=== PATIENT | female | born 1980 | race Hispanic/Latino ===

== ENCOUNTER 2018-04-04 06:17 | Day surgery (SDC) | payer MEDICAID ==
[2018-04-04] MEDS ORDERED: NACL 0.9% 1000 ML 1,000 ML IV SCH (13:00)
--- NOTE | 2018-04-04 13:16 | Anesthesia Day of Surgery ---
Anesthesia Day of Surgery - Day of Surgery Patient Examined: Yes Patient H&P Reviewed: Yes Patient is NPO: Yes
--- NOTE | 2018-04-04 13:16 | Anesthesia Consultation ---
Anesthesia Consult and Med Hx Date of service: 04/04/18 - Airway Anesthetic Teeth Evaluation: Good ROM Head & Neck: Adequate Mental/Hyoid Distance: Adequate Mallampati Class: Class III Intubation Access Assessment: Possibly Difficult - Pulmonary Exam CTA: Yes - Cardiac Exam Cardiac Exam: RRR - Pre-Operative Health Status ASA Pre-Surgery Classification: ASA3 Proposed Anesthetic Plan: General - Pulmonary Hx Smoking: No Hx Sleep Apnea: Yes (MILD/NO CPAP) - Cardiovascular System Hx Hypertension: Yes (not on meds) - Central Nervous System Hx Psychiatric Problems: Yes (depression) - Endocrine Hx Non-Insulin Dependent Diabetes: Yes - Other Systems Hx Alcohol Use: Yes (RARELY) Hx Substance Use: No Hx Cancer: No Hx Obesity: Yes
[2018-04-04] MEDS ORDERED: HURRICAINE ONE 20% TOPICAL SPRAY MM ×2 (13:49→17:19)
[2018-04-04] MEDS ORDERED: DIPRIVAN 10 MG/ML IV ONE (13:55)
[2018-04-04] MEDS ORDERED: WATER FOR IRRIG STERILE IR ONE (13:56)
[2018-04-04 14:42] VITALS: BP 106/53
--- NOTE | 2018-04-04 14:42 | Post Anesthesia Evaluation ---
- Post Anesthesia Evaluation Patient Participated: Yes Airway Patent: Yes Stable Respiratory Function: Yes Nausea/Vomiting: No Temp > 96.8F: Yes Pain Manageable: Yes Adequeate Hydration: Yes Anesthesia Complications: No
[2018-04-04] MEDS ORDERED: HURRICAINE ONE 20% TOPICAL SPRAY MM NR (19:00)
== END 2018-04-04 06:18 | disposition home or self-care (01) ==
LOC: GIO 06:17
PROVIDERS: ATTEND Specialist
DX: K29.70 Gastritis, unspecified, without bleeding (principal); K44.9 Diaphragmatic hernia without obstruction or gangrene; I10 Essential (primary) hypertension; G47.33 Obstructive sleep apnea (adult) (pediatric); E66.01 Morbid (severe) obesity due to excess calories; E11.9 Type 2 diabetes mellitus without complications; F32.9 Major depressive disorder, single episode, unspecified; Z90.49 Acquired absence of other specified parts of digestive tract; Z90.710 Acquired absence of both cervix and uterus; Z98.890 Other specified postprocedural states; Z68.41 Body mass index [BMI] 40.0-44.9, adult; Z88.6 Allergy status to analgesic agent
CPT/HCPCS: 43235; 82962; J2704; J7030

== ENCOUNTER 2018-04-11 07:11 | Inpatient (IN) | payer MEDICAID ==
[2018-04-11] MEDS ORDERED: TRANSDERM-SCOP TD SCH (08:00)
[2018-04-11] MEDS ORDERED: REGLAN IV PRN (08:00)
[2018-04-11] MEDS ORDERED: FLAGYL 500 MG/100 ML 500 MG/100 ML BAG IV NR ×2 (08:00→11:00)
[2018-04-11] MEDS: LACTATED RINGERS 1,000 ML IV SCH ×3 (08:16→23:30)
[2018-04-11 08:42] LABS: Basophils % (Auto) 0.5 % (0.0-1.8); Eosinophils # (Auto) 0.2 K/mm3 (0.0-0.4); Eosinophils % (Auto) 3.1 % (0.0-4.3); Hematocrit 40.1 % (30.3-42.9); Lymphocytes % (Auto) 26.7 % (13.4-35.0); Mean Corpuscular HGB Conc 35 % (30-34); Mean Corpuscular Hemoglobin 31 pg (28-32); Mean Corpuscular Volume 88 fl (79-97); Monocytes # (Auto) 0.5 K/mm3 (0.0-0.8); Monocytes % (Auto) 7.1 % (0.0-7.3); Platelet Count 317 K/mm3 (140-440); Red Blood Count 4.55 M/mm3 (3.65-5.03); Red Cell Distribution Width 13.9 % (13.2-15.2)
[2018-04-11 08:54] LABS: Alanine Aminotransferase 65 units/L (7-56); Albumin 4.2 g/dL (3.9-5); BUN/Creatinine Ratio 18; Blood Urea Nitrogen 11 mg/dL (7-17); Calcium 9.6 mg/dL (8.4-10.2); Hemolysis Index 11
[2018-04-11] MEDS ORDERED: LOVENOX SUB-Q ONE (09:00)
[2018-04-11] MEDS ORDERED: ANCEF/STERILE WATER 2 GM/20 ML 2 GM/20 ML SYRINGE IV SCH (09:00)
[2018-04-11] MEDS ORDERED: APRESOLINE IV PRN (10:38)
[2018-04-11] MEDS ORDERED: ANCEF/STERILE WATER 2 GM/20 ML 2 GM/20 ML SYRINGE IV NR (11:00)
[2018-04-11] MEDS ORDERED: LOVENOX SUB-Q NR (11:00)
--- NOTE | 2018-04-11 11:53 | Anesthesia Consultation ---
Anesthesia Consult and Med Hx Date of service: 04/11/18 - Airway Anesthetic Teeth Evaluation: Good ROM Head & Neck: Adequate Mental/Hyoid Distance: Adequate Mallampati Class: Class II Intubation Access Assessment: Probably Good - Pulmonary Exam CTA: Yes - Cardiac Exam Cardiac Exam: RRR - Pre-Operative Health Status ASA Pre-Surgery Classification: ASA3 Proposed Anesthetic Plan: General - Pulmonary Hx Smoking: No Hx Sleep Apnea: Yes - Cardiovascular System Hx Hypertension: Yes (not on meds) - Central Nervous System Hx Psychiatric Problems: No - Endocrine Hx Non-Insulin Dependent Diabetes: Yes - Other Systems Hx Alcohol Use: Yes (OCCA) Hx Substance Use: No Hx Cancer: No Hx Obesity: Yes
--- NOTE | 2018-04-11 11:53 | Anesthesia Day of Surgery ---
Anesthesia Day of Surgery - Day of Surgery Patient Examined: Yes Patient H&P Reviewed: Yes Patient is NPO: Yes
[2018-04-11] MEDS ORDERED: DIPRIVAN 10 MG/ML IV ONE (11:55)
[2018-04-11] MEDS ORDERED: ZEMURON IV ONE (11:55)
[2018-04-11] MEDS ORDERED: SUBLIMAZE ONE (11:55)
[2018-04-11] MEDS ORDERED: XYLOCAINE MPF 2% ONE (11:58)
[2018-04-11] MEDS ORDERED: ZOFRAN ONE (11:59)
[2018-04-11] MEDS ORDERED: TORADOL ONE ×2 (11:59→15:17)
[2018-04-11] MEDS ORDERED: XYLOCAINE 1% 20 mL INFILTRATI ONE (12:02)
[2018-04-11] MEDS ORDERED: NACL 0.9% IR ONE ×2 (12:02)
[2018-04-11] MEDS ORDERED: MARCAINE 0.5% INFILTRATI ONE (12:02)
[2018-04-11] MEDS ORDERED: VERSED ONE (12:05)
[2018-04-11] MEDS ORDERED: XYLOCAINE 1% 20 mL ONE (12:26)
[2018-04-11] MEDS ORDERED: MARCAINE 0.5% 30 ML INFILTRATI ONE (12:26)
[2018-04-11] MEDS ORDERED: DILAUDID ONE (14:42)
[2018-04-11] MEDS ORDERED: NACL 0.9% 1000 ML 1,000 ML ONE (15:12)
--- NOTE | 2018-04-11 15:29 | Operative Report ---
Operative Report Operative Report: DATE OF PROCEDURE 04/11/18 PREOPERATIVE DIAGNOSES: Morbid obesity POSTOPERATIVE DIAGNOSES: 1.same as pre-op SURGEON: Dr. Mills [employer]MEN: Dr.Speights Eagle DO PROCEDURE: 1. laparoscopic sleeve gastrectomy 2. laparoscopic hiatal hernia repair ANESTHESIA: General. ESTIMATED BLOOD LOSS: 75 mL. COMPLICATIONS: None. SPECIMEN: Partial gastrectomy. FINDINGS: 1. hiatal hernia INDICATION FOR PROCEDURE: Patient is 37 year-old with a long history of morbid obesity. The patient has tried multiple efforts at weight loss without skilled nursing success. Pt is here today for sleeve gastrectomy. PROCEDURE IN DETAIL: After consent was reviewed, patient was taken back to the operating room, where patient was placed supine on the bed with both arms out. The patient's legs were doubly strapped to the bed. Patient had a foot board in place. Patient had a body warmer placed by anesthesia. Patient was then prepped and draped in normal sterile surgical fashion. After a time-out was called, a stab incision in the left upper quadrant and inserted a veress needle through this incision and insufflated the abdomen to 18 mmHg pressure. Once the abdomen was adequately insuflated an incision was made in the umbilicus and a 15mm trocar was inserted via optiveiw technique with a 5-0 camera. I then placed a 45-degree scope through this port and inspected the abdomen. There was no injury on entry of the abdomen or at the site of the veress needle placement. The veress needle was then removed. I then placed two 5-mm ports in the right upper quadrant, one along the anterior axillary line and 1 subxiphoid below the costovertebral angle. I then placed left upper quadrant port along the anterior axillary line in a similar fashion. An additional 5mm port was placed left mid quadrant. I then placed the liver retractor through the subxiphoid port and placed the patient in full reverse Trendelenburg. The right and left crura were skeletonized accentuating a moderate hiatal hernia. The GE juction was below the level of the diaphragm. A dissection downward 1-2cm of esophagus was intrabadominal without tension. An anterior cruraplasty was perfromed with a figure-of-8 stitch using Endostich with 0 ethibond suture to reapproximate the crura. An additional single suture was place in a similar fashion. I then identified the pylorus and then counted off 6cm from the pylorus. I then used a LigaSure cutting device to enter into the lesser sac. At that point and then I took down the short gastrics all the way up to the left raimundo. Then I had anesthesia pass down a 40 Azeri bougie along the lesser curvature of the stomach. I made sure everything else was out of the abdomen except the bougie. I then created my gastric sleeve using a 60-mm laparoscopic stapler. . The sleeve looked good without any twisting or torsion. I then had anesthesia to remove the bougie. Hemostasis was obtained along the staple line with 3 10mm clips at the suture line at the mid stomach. The maynor line continued to have slight bleeding. 2-0 polysorb was used to over sew the staple line of the new formed sleeved. No further bleeding was noted. I observed the staple line for 45 sec and noted no bleeding. A 2mm superficial abrasion fo the sleeve was approximated with 2-0 polysorb suture in a figure of 8 fashion. I then used Tiseel along the entirety of the staple line and some on the liver. I then removed liver grasper and took it off the field. I then removed the stomach through the 15-mm umbilcal port. I then closed that fascia with a #1 PDS in a [id number] fashion using a Rob-Lurdes. I then desufflated the abdomen and then removed all port sites. I then closed the incisions with 4-0 Monocryl in subcuticular fashion. I then dressed the wounds with steristrips, gauze and tegaderms. Patient tolerated the procedure well and was transferred to recovery room in good and stable condition
[2018-04-11] MEDS: DILAUDID IV PRN ×4 (15:55→21:42)
[2018-04-11] MEDS: MYLICON PO PRN ×2 (16:14→21:55)
[2018-04-11] MEDS ORDERED: DILAUDID IV PRN (20:35)
[2018-04-11] MEDS ORDERED: TYLENOL #3 PO PRN (20:37)
[2018-04-11] MEDS ORDERED: BENADRYL IV PRN (20:38)
[2018-04-12] MEDS: DILAUDID IV PRN ×4 (01:06→12:52)
[2018-04-12] MEDS: ZOFRAN IV PRN ×2 (01:09→09:04)
[2018-04-12] MEDS: MYLICON PO PRN ×2 (04:43→12:52)
[2018-04-12 05:58] LABS: Hematocrit 37.7 % (30.3-42.9); Mean Corpuscular HGB Conc 34 % (30-34); Mean Corpuscular Hemoglobin 30 pg (28-32); Mean Corpuscular Volume 88 fl (79-97); Platelet Count 312 K/mm3 (140-440); Red Blood Count 4.28 M/mm3 (3.65-5.03); Red Cell Distribution Width 13.6 % (13.2-15.2)
[2018-04-12] MEDS: LACTATED RINGERS 1,000 ML IV SCH (06:11)
[2018-04-12 06:52] LABS: Band Neutrophils # (Manual) 0.1 K/mm3; Eosinophils % (Manual) 0 % (0.0-4.3); Monocytes % (Manual) 0 % (0.0-7.3); Platelet Estimate Consistent w Auto; Total Cells Counted 100
[2018-04-12 07:49] LABS: BUN/Creatinine Ratio 13; Blood Urea Nitrogen 8 mg/dL (7-17); Calcium 9.2 mg/dL (8.4-10.2); Hemolysis Index 0
[2018-04-12] MEDS: LOVENOX SUB-Q SCH ×2 (08:57→09:01)
--- NOTE | 2018-04-12 15:41 | Discharge Summary ---
Providers - Providers Date of Admission: 04/11/18 07:11 Date of discharge: 04/12/18 Attending physician: SALINA HOWARD Hospitalization Condition: Good Procedures: lap sleeve gastrectomy Disposition: DC-01 TO HOME OR SELFCARE Core Measure Documentation - Palliative Care Palliative Care/ Comfort Measures: Not Applicable - Core Measures Any of the following diagnoses?: none Exam - Constitutional Vitals: Temp Pulse Resp BP Pulse Ox 98.0 F 60 18 103/56 96 04/12/18 12:03 04/12/18 12:03 04/12/18 12:03 04/12/18 12:03 04/12/18 12:03 General appearance: Present: no acute distress, well-nourished - EENT Eyes: Present: PERRL, EOM intact ENT: hearing intact, clear oral mucosa, dentition normal - Respiratory Respiratory effort: normal Respiratory: bilateral: CTA - Cardiovascular Rhythm: regular - Extremities Extremities: no ischemia, pulses intact, pulses symmetrical, No edema, normal temperature, normal color, Full ROM - Abdominal General gastrointestinal: Present: soft, non-tender, normal bowel sounds Female genitourinary: Present: normal - Rectal Rectal Exam: deferred - Integumentary Integumentary: Present: clear, warm, dry - Musculoskeletal Musculoskeletal: strength equal bilaterally - Psychiatric Psychiatric: appropriate mood/affect Plan Activity: advance as tolerated Weight Bearing Status: Full Weight Bearing Diet: other (bariatric) Wound: keep clean and dry Follow up with: CHRIS NAIR [Other] - 7 Days SALINA HOWARD MD [Staff Physician] - 7 Days
[2018-04-12 17:28] VITALS: BP 104/58
== END 2018-04-12 17:27 | disposition home or self-care (01) | DRG 621 ==
LOC: 3A 07:11 → 3B-SURG 15:49
PROVIDERS: ADMIT Specialist; ATTEND Specialist
PROC: 0DB64Z3 Excision of Stomach, Percutaneous Endoscopic Approach, Vertical (ICD-10-PCS; principal; 2018-04-11)
PROC: 0BQT4ZZ Repair Diaphragm, Percutaneous Endoscopic Approach (ICD-10-PCS; 2018-04-11)
DX: E66.01 Morbid (severe) obesity due to excess calories (principal); K44.9 Diaphragmatic hernia without obstruction or gangrene; E11.9 Type 2 diabetes mellitus without complications; I10 Essential (primary) hypertension; Z68.38 Body mass index [BMI] 38.0-38.9, adult; Z71.3 Dietary counseling and surveillance
CPT/HCPCS: 36415; 80048; 80053; 82962; 85007; 85025; 88307; A4217; C9250; J0690; J1170; J1650; J1885; J2250; J2405; J2704; J2765; J3010; J7030; J7120